=== PATIENT | female | born 1950 | race Caucasian/White ===

== ENCOUNTER → 2016-09-29 | Outpatient (CLI) | payer MEDICARE, OTHER ==
[2015-01-20 13:45] VITALS: BP 130/62
[~2016-09-29] MED LIST: BRIM5DRO3 EACHEYE; CYCL10TA2 PO; DICL100G18 TP; IBUP-1060 PO; IRON18TA PO; TRIA10.8 NS; VIT1CAPS12 PO
--- NOTE | 2016-09-29 15:32 | KCIC ---
MR of the proximal right femur HISTORY: Proximal right thigh pain. Renal cell carcinoma with known metastatic disease to the lungs. Proximal right thigh pain for 6 weeks. TECHNIQUE: Routine multiplanar sequences. COMPARISON: None FINDINGS: Bone lesion identified within the central medullary canal of the proximal right femur. This consists of a rim of fluid signal intensity with central heterogeneous mildly hyperintense T2 signal. Measures 3.4 cm longitudinal and involves most of the medullary diameter. This is in continuity with an intracortical lesion of the medial femur, which measures 22 mm cephalocaudal by 8 mm transverse. These are contiguous, and result in a bilobed mass with acute margins at the endosteal surface. There is a mantle of edema or periosteal reaction along the adjacent medial femoral cortex. No evidence of soft tissue mass. No evidence of acute fracture. No acute muscle pathology. Several small inguinal lymph nodes are seen measuring up to 2.9 cm diameter. IMPRESSION: 1. Bilobed bone tumor of the proximal femur with intramedullary and intracortical component. 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 Consider whole body bone scan to assess activity and document additional lesions. 2. Mild nonspecific enlargement of several right inguinal lymph nodes, could be reactive or metastatic. Electronically signed by: Nelson Schroeder MD (09/29/2016 3:28 PM)
== END | disposition home or self-care (01) ==
LOC: KCIC MRI 14:02
PROVIDERS: ATTEND Family Medicine
DX: D49.2 Neoplasm of unspecified behavior of bone, soft tissue, and skin (principal); G89.3 Neoplasm related pain (acute) (chronic); R59.9 Enlarged lymph nodes, unspecified
CPT/HCPCS: 73718

== ENCOUNTER → 2016-10-05 | Outpatient (CLI) | payer MEDICARE, OTHER ==
[2015-01-20 13:45] VITALS: BP 130/62
[~2016-10-05] MED LIST changes: +CYAN10005 PO; +FURO-68 PO; +HYDR-2758 PO; +PAZO200T PO; +SUCR1TAB35 PO; +TIMO10DR5 OP; +TRAM50TA PO; +VIT1CAPS11 PO
--- NOTE | 2016-10-05 13:33 | RAD ---
Indication known metastatic disease to the right femur. Assess for potential widespread metastatic disease. The history of renal cell carcinoma is noted. Recent MRI examination demonstrating findings compatible with metastatic tumor in the right femoral diaphysis is noted. 26 mCi of technetium labeled MDP was administered. Whole body static images were obtained as well as additional images targeted to the right and left femur. No prior bone scan imaging is available. There is a focus of increased activity in the proximal right femoral diaphysis compatible with the pathology seen on the MRI examination 6 days ago. The finding is compatible with a focus of metastatic disease. There is increased uptake in both feet which is likely degenerative. Photopenic area in the right knee is noted compatible with patient's known prosthesis. Normal activity is seen in the solitary left kidney and urinary bladder. No additional focus suggesting osseous metastatic disease is seen. IMPRESSION: Bone scan redemonstrating known focus of metastatic disease in the proximal right femur. Additional foci of metastatic disease are not suggested on this exam. Increased activity in the feet likely degenerative.
== END | disposition home or self-care (01) ==
LOC: NM 09:21
PROVIDERS: ATTEND Nurse Practitioner Family
DX: C79.51 Secondary malignant neoplasm of bone (principal); C64.1 Malignant neoplasm of right kidney, except renal pelvis; Z90.5 Acquired absence of kidney
CPT/HCPCS: 78306; 96374; A9503

== ENCOUNTER 2017-11-26 15:19 | Inpatient (IN) | payer MEDICARE, OTHER ==
[~2017-11-26] VITALS: Ht 167.6 cm; Wt 97.5 kg
[2017-11-26 17:50] VITALS: BP 157/73
[2017-11-26] MEDS ORDERED: IBUP-1027 PO (18:12)
[2017-11-26] MEDS ORDERED: MULT1TAB52 PO (18:12)
[2017-11-26] MEDS ORDERED: ASPI-612 PO (18:14)
[2017-11-26] MEDS ORDERED: IBUPROFEN 400 MG TABLET. PO PRN (18:15)
[2017-11-26 19:00] VITALS: BP 157/73
[2017-11-26] MEDS: HYDROcodone/APAP 5/325MG 1 TAB TABLET PO PRN (19:35)
[2017-11-26] MEDS: fentaNYL PF VIAL 100 MCG/2 ML VIAL IV PRN (19:37)
[2017-11-26] MEDS ORDERED: ONDANSETRON PF 4 MG/2 ML VIAL. IV PRN (20:00)
[2017-11-26] MEDS: BRIMONIDINE 0.2% OPHTH SOLUTION 5ML BOTTLE. OU SCH (22:01)
[2017-11-26] MEDS: DICLOFENAC SODIUM 1% TOPICAL GEL 100GM TUBE. TP SCH (22:02)
[2017-11-26 23:00] VITALS: BP 134/69
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
[2017-11-27 03:00] VITALS: BP 130/66
[2017-11-27 07:15] VITALS: BP 158/75
[2017-11-27] MEDS: fentaNYL PF VIAL 100 MCG/2 ML VIAL IV PRN ×6 (07:22→21:48)
[2017-11-27] MEDS: HYDROcodone/APAP 5/325MG 1 TAB TABLET PO PRN ×2 (07:22→17:42)
[2017-11-27] MEDS: MULTIVITAMIN with MINERAL TABLET. PO SCH (08:35)
[2017-11-27] MEDS: MULTIVITAMIN I-VITE TABLET. PO SCH (08:35)
[2017-11-27] MEDS: CYCLOBENZAPRINE 10 MG TABLET. PO PRN (08:35)
[2017-11-27] MEDS: CYANOCOBALAMIN (VITAMIN B-12) 1,000 MCG TABLET. PO SCH (08:35)
[2017-11-27] MEDS: TIMOLOL 0.25% OPHTH SOLUTION 5ML BOTTLE. OU SCH (08:36)
[2017-11-27] MEDS: BRIMONIDINE 0.2% OPHTH SOLUTION 5ML BOTTLE. OU SCH ×2 (08:36→21:36)
[2017-11-27] MEDS: DICLOFENAC SODIUM 1% TOPICAL GEL 100GM TUBE. TP SCH ×2 (08:36→21:37)
[2017-11-27] MEDS: VOTRIENT 200 MG PO SCH (08:37)
[2017-11-27] MEDS: traMADol 50 MG TABLET PO PRN (08:47)
--- NOTE | 2017-11-27 09:31 | PDOC2 ---
CONSULT Date of Consult Date of Consult DATE: 11/27/17 TIME: 09:22 Reason for Consult Reason for Consult: Pathologic fracture of right femur Referring Physician Referring Physician: Malachi Identification/Chief Complaint Chief Complaint Right thigh pain Source Source: Chart review, Patient History of Present Illness Reason for Visit: Patient is a very pleasant 67-year-old female with history of renal cell carcinoma treated with nephrectomy, and subsequent metastatic disease treated with lobectomy of her lung. She has had thigh pain for several months. Should it hurts worse whenever she tries to put weight on it, recently she has not been able to ambulate secondary to pain. The pain does radiate posteriorly down her leg a little bit. Past Medical History Cardiovascular: HTN Pulmonary: Other (history of metastatic disease to [facility]) GI: No pertinent hx, GERD Heme/Onc: Other (renal cell carcinoma) Musculoskeletal: Osteoarthritis Renal/: Other (renal cell carcinoma) Past Surgical History Past Surgical History Right total knee arthroplasty, nephrectomy, lobectomy Past Surgical History: Tonsillectomy, Hysterectomy Family History Family History: Heart Disease Social History No ALCOHOL: none Current Medications Current Medications Current Medications Non-Formulary Medication 2 ea DAILY PO Last administered on 11/27/17at 08:37; Start 11/27/17 at 09:00 Fentanyl Citrate (Fentanyl 2ml Vial) 50 mcg PRN Q2HR PRN IV SEVERE PAIN Last administered on 11/27/17at 07:22; Start 11/26/17 at 18:15 Fentanyl Citrate (Fentanyl 2ml Vial) 25 mcg PRN Q2HR PRN IV MODERATE PAIN Last administered on 11/27/17at 08:35; Start 11/26/17 at 18:15 Cyanocobalamin (Vitamin B-12) 1,000 mcg DAILY PO Last administered on at 08:35; Start 11/27/17 at 09:00 Cyclobenzaprine HCl (Flexeril) 10 mg PRN BID PRN PO MUSCLE SPASMS Last administered on 11/27/17at 08:35; Start 11/26/17 at 18:15 Diclofenac Sodium (Voltaren) 1 destiny BID TP ; Start 11/26/17 at 21:00 Acetaminophen/ Hydrocodone Bitart (Lortab 5/325) 1 tab PRN Q6HRS PRN PO MODERATE-SEVERE PAIN Last administered on 11/27/17at 07:22; Start 11/26/17 at 18: 15 Ibuprofen (Motrin) 400 mg PRN Q6HRS PRN PO INFLAMMATION; Start 11/26/17 at 18: 15 Tramadol HCl (Ultram) 50 mg PRN Q6HRS PRN PO MILD PAIN Last administered on at 08:47; Start 11/26/17 at 18:15 Brimonidine Tartrate (Alphagan) 1 drop BID OU Last administered on 11/27/17 08 :36; Start 11/26/17 at 21:00 Multivitamins (Thera M Plus) 1 tab DAILY PO Last administered on 11/27/17 08: 35; Start 11/27/17 at 09:00 Timolol Maleate (Timoptic 0.25% Oph) 1 drop DAILY OU Last administered on at 08:36; Start 11/27/17 at 09:00 Multivitamins/ Minerals (I-Mikael) 1 tab DAILY PO Last administered on 11/27/17at 08:35; Start 11/27/17 at 09:00 Ondansetron HCl (Zofran) 4 mg PRN Q6HRS PRN IV NAUSEA/VOMITING; Start 11/26/17 at 20:00 Active Scripts Active Reported Aspirin Ec (Aspirin) 81 Mg Tablet.dr 1 Tab PO DAILY Multivitamins (Multivitamin) 1 Each Tablet 1 Tab PO DAILY Ibuprofen 400 Mg Tablet 400 Mg PO PRN Q6HRS PRN Timoptic (Timolol Maleate) 10 Ml Drops 10 Ml OP DAILY Ocuvite Softgel (Vit C/Vit E/Lutein/Min/[place]-3) 1 Each Capsule 1 Each PO DAILY Tramadol Hcl 50 Mg Tablet 50 Mg PO Q6H PRN Votrient (Pazopanib Hcl) 200 Mg Tablet 200 Mg PO 1TAB DAILY Hydrocodone-Apap 5-325 (Hydrocodone Bit/Acetaminophen) 1 Each Tablet 1 Tab PO PRN Q6HRS PRN Lasix (Furosemide) 40 Mg Tablet 40 Mg PO DAILY Vitamin B-12 (Cyanocobalamin (Vitamin B-12)) 1,000 Mcg Tablet 1,000 Mcg PO DAILY Alphagan P (Brimonidine Tartrate) 5 Ml Drops 1 Drop EACHEYE BID Voltaren (Diclofenac Sodium) 100 Gm Gel..gram. 1 Gm TP BID Cyclobenzaprine Hcl 10 Mg Tablet 1 Tab PO BID PRN Allergies Allergies: Coded Allergies: oxycodone (Verified Allergy, Intermediate, Nausea, 11/26/17) atorvastatin (Verified Allergy, Mild, Unknown, 11/26/17) Refuses to take irbesartan (Verified Allergy, Unknown, 11/27/17) ROS General: No: Chills, Night Sweats, Fatigue, Malaise, Appetite, Other PSYCHOLOGICAL ROS: No: Anxiety, Behavioral Disorder, Concentration difficultie , Decreased libido, Depression, Disorientation, Hallucinations, Hostility, Irritablity, Memory difficulties, Mood Swings, Obsessive thoughts, Physical abuse, Sexual abuse, Sleep disturbances, Suicidal ideation, Other Eyes: No Blurry vision, No Decreased vision, No Double vision, No Dry eyes, No Excessive tearing, No Eye Pain, No Itchy Eyes, No Loss of vision, No Photophobia , No Scotomata, No Uses contacts, No Uses glasses, No Other HEENT: No: Heacaches, Visual Changes, Hearing change, Nasal congestion, Nasal discharge, Oral lesions, Sinus pain, Sore Throat, Epistaxis, Sneezing, Snoring, Tinnitus, Vertigo, Vocal changes, Other ALLERGY AND IMMUNOLOGY: No: Hives, Insect Bite Sensitivity, Itchy/Watery Eyes, Nasal Congestion, Post Nasal Drip, Seasonal Allergies, Other Hematological and Lymphatic: No: Bleeding Problems, Blood Clots, Blood Transfusions, Brusing, Night Sweats, Pallor, Swollen Lymph Nodes, Other Respiratory: No: Cough, Hemoptysis, Orthopnea, Pleuritic Pain, Shortness of breath, SOB with excertion, Sputum Changes, Stridor, Tachypnea, Wheezing, Other Cardiovascular: No Chest Pain, No Palpitations, No Orthopnea, No Paroxysmal Noc. Dyspnea, No Edema, No Lt Headedness, No Other Gastrointestinal: No Nausea, No Vomiting, No Abdominal Pain, No Diarrhea, No Constipation, No Melena, No Hematochezia, No Other Genitourinary: No Dysuria, No Frequency, No Incontinence, No Hematuria, No Retention, No Discharge, No Urgency, No Pain, No Flank Pain, No Other, No , No , No , No , No , No , No Musculoskeletal: Yes Joint Pain, Yes Muscle Pain Neurological: No Behavorial Changes, No Bowel/Bladder ControlChng, No Confusion , No Dizziness, No Gait Disturbance, No Headaches, No Impaired Coord/balance, No Memory Loss, No Numbness/Tingling, No Seizures, No Speech Problems, No Tremors, No Visual Changes, No Weakness, No Other Physical Exam General: Alert, Oriented X3 HEENT: Atraumatic, EOMI Lungs: Other (respirations aren't labored with symmetric chest rise) Heart: Regular rate, No murmurs Abdomen: Soft, No tenderness Extremities: No edema, Normal pulses Neuro: Normal speech, Strength at 5/5 X4 ext, Sensation intact Psych/Mental Status: Mental status NL, Mood NL MUSCULOSKELETAL: Other (her thigh is tender to palpation. Well-healed midline incision over her right knee. No effusion. She has pain at her thigh with any movement of her leg. No overlying skin changes.) Vitals VITALS Vital Signs Date Time Temp Pulse Resp B/P (MAP) Pulse Ox O2 Delivery O2 Flow Rate FiO2 11/27/17 08:47 96 Room Air 11/27/17 07:22 16 11/27/17 07:15 98.3 62 158/75 (102) 98.3 Images Images Hip, pelvis, femur x-rays were interpreted by myself. She has pathologic fracture through a lytic lesion in her diaphyseal portion of her femur. Assessment/Plan Assessment/Plan Right femur pathologic fracture, history of renal cell carcinoma with metastasis. I did discuss her care with the hospitalist, and recommend treatment by an orthopedic oncologist as I am uncertain as to the most appropriate treatment for this patient. She can be transferred whenever excepting surgeon is available. She should be nonweightbearing in the meantime. MILAGRO MASTERSON II, MD Nov 27, 2017 09:31
[2017-11-27 11:04] VITALS: BP 140/73
--- NOTE | 2017-11-27 11:54 | PDOC3 ---
Discharge Summary Visit Information Date of Admission: Nov 26, 2017 Date of Discharge: Nov 27, 2017 Admitting Diagnosis Comment: Right femur pathologic fracture, history of renal cell carcinoma with metastasis s/p lobectomy lung s/p radiation RT leg Brief Hospital Course Allergies Allergies Coded Allergies Type Severity Reaction Last Updated Verified oxycodone Allergy Intermediate Nausea 11/26/17 Yes atorvastatin Allergy Mild Unknown 11/26/17 Yes irbesartan Allergy Unknown 11/27/17 Yes Vital Signs Vital Signs Date Time Temp Pulse Resp B/P (MAP) Pulse Ox O2 Delivery O2 Flow Rate FiO2 11/27/17 11:04 98.1 58 20 140/73 (95) 95 98.1 11/27/17 08:47 Room Air Brief Hospital Course Ms. Jones is a 67 old female with history of RCC with metastases to the lung that was lobectomized in the past, also history of radiation to the right RCC, comes in because of right leg pain, denies any history of fall. On x-ray shows right fracture diaphyseal shaft. Orthopedics has seen, because of the RCC history with metastases, pathologic fracture, recommended orthopedics oncologist. I did get in touch with transfer service, they will review. Records will be faxed. If accepted, I have readied the paperwork. To stop asa or NSAIDs pending orthopedics eval at for possible surgery. Patient did get pain medicines, otherwise nontoxic, hemodynamically stable. Discussed with RN, and transfer line d c time > 30 Discharge Information Condition at Discharge: Improved, Stable Disposition/Orders: Other (transfer to ) Scheduled Aspirin (Aspirin Ec) 81 Mg Tablet.dr, 1 TAB PO DAILY, #30 Ref 3 (Reported) Entered as Reported by: SANDRA COONEY on 11/26/171813 Last Action: New Order on 11/26/171813 by SANDRA COONEY Brimonidine Tartrate (Alphagan P) 5 Ml Drops, 1 DROP EACHEYE BID, (Reported) Entered as Reported by: MONTEZ MERIDA on 01/20/15 1017 Last Action: Converted on 11/26/171823 by SANDRA COONEY Cyanocobalamin (Vitamin B-12) (Vitamin B-12) 1,000 Mcg Tablet, 1,000 MCG PO DAILY, (Reported) Entered as Reported by: JAKE ROBERTS on 6/28/17 0826 Last Action: Continued on 11/26/171823 by SANDRA COONEY Diclofenac Sodium (Voltaren) 100 Gm Gel..gram., 1 GM TP BID, (Reported) Entered as Reported by: MONTEZ MERIDA on 01/20/15 1017 Last Action: Continued on 11/26/171823 by SANDRA COONEY Furosemide (Lasix) 40 Mg Tablet, 40 MG PO DAILY, (Reported) Entered as Reported by: JAKE ROBERTS on 10/11/16825 Multivitamin (Multivitamins) 1 Each Tablet, 1 TAB PO DAILY, #90 Ref 3 (Reported) Entered as Reported by: SANDRA COONEY on 11/26/171811 Last Action: Converted on 11/26/171823 by SANDRA COONEY Pazopanib Hcl (Votrient) 200 Mg Tablet, 200 MG PO 1tab daily, (Reported) Entered as Reported by: JAKE ROBERTS on 10/11/16825 Timolol Maleate (Timoptic) 10 Ml Drops, 10 ML OP DAILY, (Reported) Entered as Reported by: JAKE ROBERTS on 10/11/16826 Last Action: Converted on 11/26/171823 by SANDRA COONEY Vit C/Vit E/Lutein/Min/[place]-3 (Ocuvite Softgel) 1 Each Capsule, 1 EACH PO DAILY , (Reported) Entered as Reported by: JAKE ROBERTS on 10/11/16825 Last Action: Converted on 11/26/171823 by SANDRA COONEY Scheduled PRN Cyclobenzaprine Hcl (Cyclobenzaprine Hcl) 10 Mg Tablet, 1 TAB PO BID PRN for MUSCLE SPASMS, (Reported) Entered as Reported by: MONTEZ MERIDA on 01/20/151016 Last Action: Continued on 11/26/171823 by SANDRA COONEY Hydrocodone Bit/Acetaminophen (Hydrocodone-Apap 5-325 ) 1 Each Tablet, 1 TAB PO PRN Q6HRS PRN for PAIN, (Reported) Entered as Reported by: JAKE ROBERTS on 10/11/16825 Last Action: Continued on 11/26/171823 by SANDRA COONEY Ibuprofen (Ibuprofen) 400 Mg Tablet, 400 MG PO PRN Q6HRS PRN for INFLAMMATION, ( Reported) Entered as Reported by: SANDRA COONEY on 11/26/171811 Last Action: Continued on 11/26/171823 by SANDRA COONEY Tramadol Hcl (Tramadol Hcl) 50 Mg Tablet, 50 MG PO Q6H PRN for PAIN, (Reported) Entered as Reported by: JAKE ROBERTS on 10/11/16825 Last Action: Continued on 11/26/171823 by SANDRA COONEY Discontinued Medications Sucralfate (Carafate) 1 Gm Tablet, 1 GM PO QIDACHS, (Reported) Entered as Reported by: JAKE ROBERTS on 10/11/16825 Last Action: Discontinued on 11/26/171811 by SANDRA COONEY Triamcinolone Acetonide (Nasacort) 10.8 Ml [place], 2 SPRAY NS DAILY, (Reported) Entered as Reported by: MONTEZ MERIDA on 01/20/15 1017 Last Action: Discontinued on 11/26/171811 by JEFFERY ESPINOSA MD Nov 27, 2017 11:54
[2017-11-27 12:13] LABS: BASO % 0 % (0-3); EOS # 0.1 x10^3/uL (0.0-0.7); EOS % 3 % (0-3); HEMATOCRIT 28.7 % (36.0-47.0); HEMOGLOBIN 9.6 g/dL (12.0-15.5); LYMPH # 0.7 x10^3/uL (1.0-4.8); LYMPH % 25 % (24-48); MEAN CORPUSCULAR HEMOGLOBIN 31 pg (25-35); MEAN CORPUSCULAR HGB CONC 34 g/dL (31-37); MEAN CORPUSCULAR VOLUME 92 fL (79-100); MONO # 0.2 x10^3/uL (0.0-1.1); MONO % 8 % (0-9); NEUT # 1.7 x10^3uL (1.8-7.7); NEUT % 64 % (31-73); PLATELET COUNT 161 x10^3/uL (140-400); RED CELL DISTRIBUTION WIDTH 16.4 % (11.5-14.5); WHITE BLOOD COUNT 2.7 x10^3/uL (4.0-11.0)
[2017-11-27 12:18] LABS: PROTHROMBIN TIME PATIENT 14.1 SEC (11.7-14.0)
[2017-11-27 12:27] LABS: ALBUMIN 2.5 g/dL (3.4-5.0); ALBUMIN/GLOBULIN RATIO 0.7 (1.0-1.7); CALCIUM 8.6 mg/dL (8.5-10.1); CREATININE 0.8 mg/dL (0.6-1.0); GFR 71.1; POTASSIUM 3.8 mmol/L (3.5-5.1); TOTAL BILIRUBIN 0.9 mg/dL (0.2-1.0); TOTAL PROTEIN 6.2 g/dL (6.4-8.2)
[2017-11-27 15:04] VITALS: BP 130/69
--- NOTE | 2017-11-27 15:50 | PDOC ---
PROGRESS NOTES Chief Complaint Chief Complaint RT leg pain History of Present Illness History of Present Illness Right femur pathologic fracture, history of renal cell carcinoma with metastasis s/p lobectomy lung s/p radiation RT leg dw [facility] fusion operator the case, they have to have financial approval NOw word from staff , transfer wont happen till tmr PAin on movment of leg, not controlled by fentanyl, percocet or tramadol Add morphine TRying to avoid NSAds since high likelihood sx in the next few days by [facility] Pt denies trauma prior Hx of radiation to RCC, pathologic diaphyseal fx now Vitals Vitals Vital Signs Date Time Temp Pulse Resp B/P (MAP) Pulse Ox O2 Delivery O2 Flow Rate FiO2 11/27/17 15:25 Room Air 11/27/17 15:04 98.1 61 20 130/69 (89) 95 98.1 Physical Exam General: Alert, Oriented X3 Heart: Regular rate, No murmurs Abdomen: Soft, No tenderness Extremities: No edema, Normal pulses, Other (pain and tenderness RT shaft leg on movement and palp) Labs LABS Laboratory Tests Test 11/27/17 11:44 White Blood Count 2.7 x10^3/uL (4.0-11.0) Red Blood Count 3.10 x10^6/uL (3.50-5.40) Hemoglobin 9.6 g/dL (12.0-15.5) Hematocrit 28.7 % (36.0-47.0) Mean Corpuscular Volume 92 fL (79-100) Mean Corpuscular Hemoglobin 31 pg (25-35) Mean Corpuscular Hemoglobin Concent 34 g/dL (31-37) Red Cell Distribution Width 16.4 % (11.5-14.5) Platelet Count 161 x10^3/uL (140-400) Neutrophils (%) (Auto) 64 % (31-73) Lymphocytes (%) (Auto) 25 % (24-48) Monocytes (%) (Auto) 8 % (0-9) Eosinophils (%) (Auto) 3 % (0-3) Basophils (%) (Auto) 0 % (0-3) Neutrophils # (Auto) 1.7 x10^3uL (1.8-7.7) Lymphocytes # (Auto) 0.7 x10^3/uL (1.0-4.8) Monocytes # (Auto) 0.2 x10^3/uL (0.0-1.1) Eosinophils # (Auto) 0.1 x10^3/uL (0.0-0.7) Basophils # (Auto) 0.0 x10^3/uL (0.0-0.2) Prothrombin Time 14.1 SEC (11.7-14.0) Prothromb Time International Ratio 1.1 (0.8-1.1) Sodium Level 136 mmol/L (136-145) Potassium Level 3.8 mmol/L (3.5-5.1) Chloride Level 100 mmol/L (98-107) Carbon Dioxide Level 31 mmol/L (21-32) Anion Gap 5 (6-14) Blood Urea Nitrogen 6 mg/dL (7-20) Creatinine 0.8 mg/dL (0.6-1.0) Estimated GFR (Cockcroft-Gault) 71.1 BUN/Creatinine Ratio 8 (6-20) Glucose Level 97 mg/dL (70-99) Calcium Level 8.6 mg/dL (8.5-10.1) Total Bilirubin 0.9 mg/dL (0.2-1.0) Aspartate Amino Transf (AST/SGOT) 17 U/L (15-37) Alanine Aminotransferase (ALT/SGPT) 15 U/L (14-59) Alkaline Phosphatase 61 U/L (46-116) Total Protein 6.2 g/dL (6.4-8.2) Albumin 2.5 g/dL (3.4-5.0) Albumin/Globulin Ratio 0.7 (1.0-1.7) Review of Systems Review of Systems RT leg pain, all else is neg Comment Review of Relevant I have reviewed the following items patrick (where applicable) has been applied. Labs Laboratory Tests Test 11/27/17 11:44 White Blood Count 2.7 x10^3/uL (4.0-11.0) Red Blood Count 3.10 x10^6/uL (3.50-5.40) Hemoglobin 9.6 g/dL (12.0-15.5) Hematocrit 28.7 % (36.0-47.0) Mean Corpuscular Volume 92 fL (79-100) Mean Corpuscular Hemoglobin 31 pg (25-35) Mean Corpuscular Hemoglobin Concent 34 g/dL (31-37) Red Cell Distribution Width 16.4 % (11.5-14.5) Platelet Count 161 x10^3/uL (140-400) Neutrophils (%) (Auto) 64 % (31-73) Lymphocytes (%) (Auto) 25 % (24-48) Monocytes (%) (Auto) 8 % (0-9) Eosinophils (%) (Auto) 3 % (0-3) Basophils (%) (Auto) 0 % (0-3) Neutrophils # (Auto) 1.7 x10^3uL (1.8-7.7) Lymphocytes # (Auto) 0.7 x10^3/uL (1.0-4.8) Monocytes # (Auto) 0.2 x10^3/uL (0.0-1.1) Eosinophils # (Auto) 0.1 x10^3/uL (0.0-0.7) Basophils # (Auto) 0.0 x10^3/uL (0.0-0.2) Prothrombin Time 14.1 SEC (11.7-14.0) Prothromb Time International Ratio 1.1 (0.8-1.1) Sodium Level 136 mmol/L (136-145) Potassium Level 3.8 mmol/L (3.5-5.1) Chloride Level 100 mmol/L (98-107) Carbon Dioxide Level 31 mmol/L (21-32) Anion Gap 5 (6-14) Blood Urea Nitrogen 6 mg/dL (7-20) Creatinine 0.8 mg/dL (0.6-1.0) Estimated GFR (Cockcroft-Gault) 71.1 BUN/Creatinine Ratio 8 (6-20) Glucose Level 97 mg/dL (70-99) Calcium Level 8.6 mg/dL (8.5-10.1) Total Bilirubin 0.9 mg/dL (0.2-1.0) Aspartate Amino Transf (AST/SGOT) 17 U/L (15-37) Alanine Aminotransferase (ALT/SGPT) 15 U/L (14-59) Alkaline Phosphatase 61 U/L (46-116) Total Protein 6.2 g/dL (6.4-8.2) Albumin 2.5 g/dL (3.4-5.0) Albumin/Globulin Ratio 0.7 (1.0-1.7) Laboratory Tests Test 11/27/17 11:44 White Blood Count 2.7 x10^3/uL (4.0-11.0) Red Blood Count 3.10 x10^6/uL (3.50-5.40) Hemoglobin 9.6 g/dL (12.0-15.5) Hematocrit 28.7 % (36.0-47.0) Mean Corpuscular Volume 92 fL (79-100) Mean Corpuscular Hemoglobin 31 pg (25-35) Mean Corpuscular Hemoglobin Concent 34 g/dL (31-37) Red Cell Distribution Width 16.4 % (11.5-14.5) Platelet Count 161 x10^3/uL (140-400) Neutrophils (%) (Auto) 64 % (31-73) Lymphocytes (%) (Auto) 25 % (24-48) Monocytes (%) (Auto) 8 % (0-9) Eosinophils (%) (Auto) 3 % (0-3) Basophils (%) (Auto) 0 % (0-3) Neutrophils # (Auto) 1.7 x10^3uL (1.8-7.7) Lymphocytes # (Auto) 0.7 x10^3/uL (1.0-4.8) Monocytes # (Auto) 0.2 x10^3/uL (0.0-1.1) Eosinophils # (Auto) 0.1 x10^3/uL (0.0-0.7) Basophils # (Auto) 0.0 x10^3/uL (0.0-0.2) Prothrombin Time 14.1 SEC (11.7-14.0) Prothromb Time International Ratio 1.1 (0.8-1.1) Sodium Level 136 mmol/L (136-145) Potassium Level 3.8 mmol/L (3.5-5.1) Chloride Level 100 mmol/L (98-107) Carbon Dioxide Level 31 mmol/L (21-32) Anion Gap 5 (6-14) Blood Urea Nitrogen 6 mg/dL (7-20) Creatinine 0.8 mg/dL (0.6-1.0) Estimated GFR (Cockcroft-Gault) 71.1 BUN/Creatinine Ratio 8 (6-20) Glucose Level 97 mg/dL (70-99) Calcium Level 8.6 mg/dL (8.5-10.1) Total Bilirubin 0.9 mg/dL (0.2-1.0) Aspartate Amino Transf (AST/SGOT) 17 U/L (15-37) Alanine Aminotransferase (ALT/SGPT) 15 U/L (14-59) Alkaline Phosphatase 61 U/L (46-116) Total Protein 6.2 g/dL (6.4-8.2) Albumin 2.5 g/dL (3.4-5.0) Albumin/Globulin Ratio 0.7 (1.0-1.7) Medications Current Medications Non-Formulary Medication 2 ea DAILY PO Last administered on 11/27/17 08:37; Start 11/27/17 at 09:00 Fentanyl Citrate (Fentanyl 2ml Vial) 50 mcg PRN Q2HR PRN IV SEVERE PAIN Last administered on 11/27/17 15:25; Start 11/26/17 at 18:15 Fentanyl Citrate (Fentanyl 2ml Vial) 25 mcg PRN Q2HR PRN IV MODERATE PAIN Last administered on 11/27/17 08:35; Start 11/26/17 at 18:15 Cyanocobalamin (Vitamin B-12) 1,000 mcg DAILY PO Last administered on 08:35; Start 11/27/17 at 09:00 Cyclobenzaprine HCl (Flexeril) 10 mg PRN BID PRN PO MUSCLE SPASMS Last administered on 11/27/17 08:35; Start 11/26/17 at 18:15 Diclofenac Sodium (Voltaren) 1 destiny BID TP ; Start 11/26/17 at 21:00 Acetaminophen/ Hydrocodone Bitart (Lortab 5/325) 1 tab PRN Q6HRS PRN PO MODERATE-SEVERE PAIN Last administered on 11/27/17at 07:22; Start 11/26/17 at 18: 15 Ibuprofen (Motrin) 400 mg PRN Q6HRS PRN PO INFLAMMATION; Start 11/26/17 at 18: 15; Stop 11/27/17 at 15:46; Status DC Tramadol HCl (Ultram) 50 mg PRN Q6HRS PRN PO MILD PAIN Last administered on at 08:47; Start 11/26/17 at 18:15 Brimonidine Tartrate (Alphagan) 1 drop BID OU Last administered on 11/27/17at 08 :36; Start 11/26/17 at 21:00 Multivitamins (Thera M Plus) 1 tab DAILY PO Last administered on 11/27/17at 08: 35; Start 11/27/17 at 09:00 Timolol Maleate (Timoptic 0.25% Ophth) 1 drop DAILY OU Last administered on at 08:36; Start 11/27/17 at 09:00 Multivitamins/ Minerals (I-Mikael) 1 tab DAILY PO Last administered on 11/27/17at 08:35; Start 11/27/17 at 09:00 Ondansetron HCl (Zofran) 4 mg PRN Q6HRS PRN IV NAUSEA/VOMITING; Start 11/26/17 at 20:00 Active Scripts Active Reported Aspirin Ec (Aspirin) 81 Mg Tablet.dr 1 Tab PO DAILY Multivitamins (Multivitamin) 1 Each Tablet 1 Tab PO DAILY Ibuprofen 400 Mg Tablet 400 Mg PO PRN Q6HRS PRN Timoptic (Timolol Maleate) 10 Ml Drops 10 Ml OP DAILY Ocuvite Softgel (Vit C/Vit E/Lutein/Min/[place]-3) 1 Each Capsule 1 Each PO DAILY Tramadol Hcl 50 Mg Tablet 50 Mg PO Q6H PRN Votrient (Pazopanib Hcl) 200 Mg Tablet 200 Mg PO 1TAB DAILY Hydrocodone-Apap 5-325 (Hydrocodone Bit/Acetaminophen) 1 Each Tablet 1 Tab PO PRN Q6HRS PRN Lasix (Furosemide) 40 Mg Tablet 40 Mg PO DAILY Vitamin B-12 (Cyanocobalamin (Vitamin B-12)) 1,000 Mcg Tablet 1,000 Mcg PO DAILY Alphagan P (Brimonidine Tartrate) 5 Ml Drops 1 Drop EACHEYE BID Voltaren (Diclofenac Sodium) 100 Gm Gel..gram. 1 Gm TP BID Cyclobenzaprine Hcl 10 Mg Tablet 1 Tab PO BID PRN Vitals/I & O Vital Sign - Last 24 Hours 11/26/17 11/26/17 11/26/17 11/26/17 17:50 19:00 19:35 19:37 Temp 97.4 97.4 97.4 97.4 Pulse 69 69 Resp 18 18 18 B/P (MAP) 157/73 (101) 157/73 (101) Pulse Ox 98 98 O2 Delivery Room Air Room Air 11/26/17 11/26/17 11/26/17 11/26/17 20:00 20:07 20:35 23:00 Temp 98.1 98.1 Pulse 63 Resp 18 18 B/P (MAP) 134/69 (90) Pulse Ox 96 O2 Delivery Room Air 11/27/17 11/27/17 11/27/17 11/27/17 03:00 07:15 07:22 07:22 Temp 98.6 98.3 98.6 98.3 Pulse 80 62 Resp 18 18 16 16 B/P (MAP) 130/66 (87) 158/75 (102) Pulse Ox 96 97 96 96 O2 Delivery Room Air Room Air 11/27/17 11/27/17 11/27/17 11/27/17 08:10 08:35 08:47 11:04 Temp 98.1 98.1 Pulse 58 Resp 20 B/P (MAP) 140/73 (95) Pulse Ox 96 95 O2 Delivery Room Air Room Air Room Air 11/27/17 11/27/17 11/27/17 11/27/17 13:08 13:08 13:08 13:08 O2 Delivery Room Air Room Air Room Air Room Air 11/27/17 11/27/17 11/27/17 13:26 15:04 15:25 Temp 98.1 98.1 Pulse 61 Resp 20 B/P (MAP) 130/69 (89) Pulse Ox 95 O2 Delivery Room Air Room Air Intake and Output 11/26/17 11/26/17 11/27/17 15:00 23:00 07:00 Intake Total 120 ml 0 ml Balance 120 ml 0 ml JEFFERY HARMON MD Nov 27, 2017 15:50
[2017-11-27] MEDS ORDERED: MORPHINE SULFATE 2 MG/ML VIAL. IV PRN (16:00)
--- NOTE | 2017-11-27 17:19 | RAD ---
EXAM: CHEST 1 VIEW History: Preop COMPARISON: 08/10/2016 TECHNIQUE: Single portable radiograph of the chest FINDINGS: The cardiac silhouette is unremarkable. Linear subtle density identified in the right lung base probably epicardial fat pad or atelectasis. Impression: Linear subtle density identified in the right lung base could be epicardial fat pad or atelectasis. Electronically signed by: Tristan Villeda MD (11/27/2017 5:15 PM) [id number]
--- NOTE | 2017-11-27 17:24 | RAD ---
Examination: 2 views of the right hip, 2 views of the right femur COMPARISON: None available history: History of fall, pain FINDINGS: Osseous demineralization limits evaluation. Right femoral head is within the acetabulum. Moderate degenerative changes identified in the right hip joint There is moth-eaten appearance with scalloping of the medial cortex of the proximal diaphysis of the femur with a lytic lesion identified in the lateral proximal diaphysis of the femur with endosteal scalloping likely lytic metastatic lesions. Partially visualized right knee arthroplasty changes. IMPRESSION: Metastatic lesions with cortical disruption and thinning of the cortex identified in the proximal right femoral diaphysis. Electronically signed by: Tristan Villeda MD (11/27/2017 5:20 PM) [id number]
[2017-11-27 19:00] VITALS: BP 144/65
[2017-11-27 23:00] VITALS: BP 137/67
[2017-11-28] MEDS: fentaNYL PF VIAL 100 MCG/2 ML VIAL IV PRN ×5 (02:22→09:20)
[2017-11-28 03:00] VITALS: BP 149/74
[2017-11-28] MEDS: HYDROcodone/APAP 5/325MG 1 TAB TABLET PO PRN ×2 (05:05→08:32)
--- NOTE | 2017-11-28 05:27 | CONS ---
DATE OF CONSULTATION: 11/27/2017 MEDICAL ONCOLOGY CONSULTATION REQUESTING PHYSICIAN: Dr. Lacy Ly. REASON FOR CONSULTATION: Metastatic renal cell carcinoma with right femur pathologic fracture. HISTORY OF PRESENT ILLNESS: The patient is a 67-year-old female who presented with severe anemia, weight loss and thrombocytosis in January 2015 and was found to have a large right renal mass. She underwent right nephrectomy by Dr. 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 In May 2016, a surveillance CT scan revealed a new 1.1 cm right upper lobe lung nodule and a 0.7 cm left lower lobe lung nodule. Biopsy confirmed metastatic renal cell carcinoma. She underwent right upper lobe wedge resection on 08/03/2016. In August 2016, she was started on pazopanib. In September 2016, right hip MRI revealed metastatic disease to the bone; however, the bone scan was negative at that time. She received palliative radiation therapy to her right femur in October 2016. She was admitted to [facility] on 11/26/2017 with complaints of progressively worsening right thigh pain. It has got to the extent that she is not able to ambulate. She underwent x-rays that revealed pathologic fracture of the right femur. Orthopedics was consulted. I discussed with Dr. Rusty Esposito from Orthopedics who recommended transfer to [facility] for evaluation by orthopedic oncologist. PAST MEDICAL HISTORY: Osteoarthritis, fibromyalgia, cataracts, acid reflux, back pain. PAST SURGICAL HISTORY: Tubal ligation, hysterectomy, ankle surgery, cardiac catheterization, knee replacement, nephrectomy, right upper lobe lung wedge resection, appendectomy, tonsillectomy, cataract surgery. FAMILY HISTORY: Positive for diabetes and cancer in the bones and history of heart disease. SOCIAL HISTORY: Never smoker. No alcohol abuse. REVIEW OF SYSTEMS: A 12-point review of system was performed. Pertinent positives are mentioned in the history of present illness. Rest of the system review is negative. PHYSICAL EXAMINATION: GENERAL APPEARANCE: The patient is a 67-year-old female who is in no acute cardiorespiratory distress. VITAL SIGNS: Blood pressure 140/73, temperature 98.1. HEENT: Head atraumatic, normocephalic. Eyes: No icterus. NECK: Supple. CHEST: Bilaterally symmetrical. No crepitations or rhonchi heard. HEART: S1, S2 normal. ABDOMEN: Soft, nontender. CENTRAL NERVOUS SYSTEM: No focal deficits. LYMPHATICS: No lymphadenopathy. SKIN: No rashes. MUSCULOSKELETAL: She has significant pain in the right thigh region and she is unable to ambulate. LYMPHATICS: No lymphadenopathy. LABORATORY DATA: WBC 2.7, hemoglobin 9.6, platelet count 161, absolute neutrophil count is 1.7. Creatinine is 0.8. IMPRESSION AND PLAN: 1. Stage IV renal cell carcinoma/clear cell carcinoma with metastatic disease to the lungs and bones. She has evidence of metastatic disease to the right femur. Otherwise, the bone scan was negative. She has undergone right nephrectomy in 2014, right upper lobe lung wedge resection in July 2016. She has been on palliative treatment with pazopanib since August 2016 at a dose of 600 mg daily. Bilirubin was elevated and hence, the dose was decreased to 400 mg daily. Currently, her total bilirubin is normal at 0.9. I would hold the pazopanib for now until the right femur lesion is addressed by Orthopedics Oncology. 2. Pathologic fracture of the right femur. I discussed with Dr. Rusty Esposito from Orthopedics and I also discussed with Dr. Lacy Ly. Dr. Esposito recommended transfer to [facility] for management by orthopedic oncologist. 3. Anemia due to malignancy. Hemoglobin 9.6, monitor. 4. Leukopenia, mild at 2.7 with a neutrophil count of 1.7. No signs of infection. Etiology likely due to pazopanib. Continue to monitor. DONNIE RODRIGUEZ MD DR: RICKY/sebastian JOB#: [id number] / [id number] MTDD
[2017-11-28 07:00] VITALS: BP 178/90
[2017-11-28] MEDS: VOTRIENT 200 MG PO SCH (08:16)
[2017-11-28] MEDS: TIMOLOL 0.25% OPHTH SOLUTION 5ML BOTTLE. OU SCH (08:16)
[2017-11-28] MEDS: BRIMONIDINE 0.2% OPHTH SOLUTION 5ML BOTTLE. OU SCH (08:16)
[2017-11-28] MEDS: MULTIVITAMIN I-VITE TABLET. PO SCH (08:32)
[2017-11-28] MEDS: CYANOCOBALAMIN (VITAMIN B-12) 1,000 MCG TABLET. PO SCH (08:32)
[2017-11-28] MEDS: traMADol 50 MG TABLET PO PRN (08:32)
[2017-11-28] MEDS: CYCLOBENZAPRINE 10 MG TABLET. PO PRN (08:32)
[2017-11-28] MEDS: MULTIVITAMIN with MINERAL TABLET. PO SCH (08:32)
--- NOTE | 2017-11-28 08:53 | PDOC3 ---
Discharge Summary Visit Information Date of Admission: Nov 26, 2017 Date of Discharge: Nov 28, 2017 Admitting Diagnosis Comment: Right femur pathologic fracture, history of renal cell carcinoma with metastasis s/p lobectomy lung s/p radiation RT leg Brief Hospital Course Allergies Allergies Coded Allergies Type Severity Reaction Last Updated Verified oxycodone Allergy Intermediate Nausea 11/26/17 Yes atorvastatin Allergy Mild Unknown 11/26/17 Yes irbesartan Allergy Unknown 11/27/17 Yes Vital Signs Vital Signs Date Time Temp Pulse Resp B/P (MAP) Pulse Ox O2 Delivery O2 Flow Rate FiO2 11/28/17 08:32 Room Air 11/28/17 08:09 96 11/28/17 07:00 98.3 77 18 178/90 (119) 98.3 Lab Results Laboratory Tests Test 11/27/17 11:44 White Blood Count 2.7 x10^3/uL (4.0-11.0) Red Blood Count 3.10 x10^6/uL (3.50-5.40) Hemoglobin 9.6 g/dL (12.0-15.5) Hematocrit 28.7 % (36.0-47.0) Mean Corpuscular Volume 92 fL (79-100) Mean Corpuscular Hemoglobin 31 pg (25-35) Mean Corpuscular Hemoglobin Concent 34 g/dL (31-37) Red Cell Distribution Width 16.4 % (11.5-14.5) Platelet Count 161 x10^3/uL (140-400) Neutrophils (%) (Auto) 64 % (31-73) Lymphocytes (%) (Auto) 25 % (24-48) Monocytes (%) (Auto) 8 % (0-9) Eosinophils (%) (Auto) 3 % (0-3) Basophils (%) (Auto) 0 % (0-3) Neutrophils # (Auto) 1.7 x10^3uL (1.8-7.7) Lymphocytes # (Auto) 0.7 x10^3/uL (1.0-4.8) Monocytes # (Auto) 0.2 x10^3/uL (0.0-1.1) Eosinophils # (Auto) 0.1 x10^3/uL (0.0-0.7) Basophils # (Auto) 0.0 x10^3/uL (0.0-0.2) Prothrombin Time 14.1 SEC (11.7-14.0) Prothromb Time International Ratio 1.1 (0.8-1.1) Sodium Level 136 mmol/L (136-145) Potassium Level 3.8 mmol/L (3.5-5.1) Chloride Level 100 mmol/L (98-107) Carbon Dioxide Level 31 mmol/L (21-32) Anion Gap 5 (6-14) Blood Urea Nitrogen 6 mg/dL (7-20) Creatinine 0.8 mg/dL (0.6-1.0) Estimated GFR (Cockcroft-Gault) 71.1 BUN/Creatinine Ratio 8 (6-20) Glucose Level 97 mg/dL (70-99) Calcium Level 8.6 mg/dL (8.5-10.1) Total Bilirubin 0.9 mg/dL (0.2-1.0) Aspartate Amino Transf (AST/SGOT) 17 U/L (15-37) Alanine Aminotransferase (ALT/SGPT) 15 U/L (14-59) Alkaline Phosphatase 61 U/L (46-116) Total Protein 6.2 g/dL (6.4-8.2) Albumin 2.5 g/dL (3.4-5.0) Albumin/Globulin Ratio 0.7 (1.0-1.7) Laboratory Tests Test 11/27/17 11:44 White Blood Count 2.7 x10^3/uL (4.0-11.0) Red Blood Count 3.10 x10^6/uL (3.50-5.40) Hemoglobin 9.6 g/dL (12.0-15.5) Hematocrit 28.7 % (36.0-47.0) Mean Corpuscular Volume 92 fL (79-100) Mean Corpuscular Hemoglobin 31 pg (25-35) Mean Corpuscular Hemoglobin Concent 34 g/dL (31-37) Red Cell Distribution Width 16.4 % (11.5-14.5) Platelet Count 161 x10^3/uL (140-400) Neutrophils (%) (Auto) 64 % (31-73) Lymphocytes (%) (Auto) 25 % (24-48) Monocytes (%) (Auto) 8 % (0-9) Eosinophils (%) (Auto) 3 % (0-3) Basophils (%) (Auto) 0 % (0-3) Neutrophils # (Auto) 1.7 x10^3uL (1.8-7.7) Lymphocytes # (Auto) 0.7 x10^3/uL (1.0-4.8) Monocytes # (Auto) 0.2 x10^3/uL (0.0-1.1) Eosinophils # (Auto) 0.1 x10^3/uL (0.0-0.7) Basophils # (Auto) 0.0 x10^3/uL (0.0-0.2) Prothrombin Time 14.1 SEC (11.7-14.0) Prothromb Time International Ratio 1.1 (0.8-1.1) Sodium Level 136 mmol/L (136-145) Potassium Level 3.8 mmol/L (3.5-5.1) Chloride Level 100 mmol/L (98-107) Carbon Dioxide Level 31 mmol/L (21-32) Anion Gap 5 (6-14) Blood Urea Nitrogen 6 mg/dL (7-20) Creatinine 0.8 mg/dL (0.6-1.0) Estimated GFR (Cockcroft-Gault) 71.1 BUN/Creatinine Ratio 8 (6-20) Glucose Level 97 mg/dL (70-99) Calcium Level 8.6 mg/dL (8.5-10.1) Total Bilirubin 0.9 mg/dL (0.2-1.0) Aspartate Amino Transf (AST/SGOT) 17 U/L (15-37) Alanine Aminotransferase (ALT/SGPT) 15 U/L (14-59) Alkaline Phosphatase 61 U/L (46-116) Total Protein 6.2 g/dL (6.4-8.2) Albumin 2.5 g/dL (3.4-5.0) Albumin/Globulin Ratio 0.7 (1.0-1.7) Brief Hospital Course Ms. Jones is a 67 old [white female with history of RCC to the right, status post radiation to the right kidney, did not fall at home but could not get up after waking up. Right leg pain. Severe. ER showed right diaphyseal shaft fracture. Orthopedics here recommended ortho onc bec of the nature of the fx, . Needs a luca in the dipahyseal shaft. Recommended transfer to and has been accepted today Med list done, discussed with [facility] skin[facility] Discharge Information Condition at Discharge: Stable Disposition/Orders: Other (transfer to ) Scheduled Aspirin (Aspirin Ec) 81 Mg Tablet.dr, 1 TAB PO DAILY, #30 Ref 3 (Reported) Entered as Reported by: SANDRA COONEY on 11/26/171813 Last Action: New Order on 11/26/171813 by SANDRA COONEY Brimonidine Tartrate (Alphagan P) 5 Ml Drops, 1 DROP EACHEYE BID, (Reported) Entered as Reported by: MONTEZ MERIDA on 01/20/15 1017 Last Action: Converted on 11/26/171823 by SANDRA COONEY Cyanocobalamin (Vitamin B-12) (Vitamin B-12) 1,000 Mcg Tablet, 1,000 MCG PO DAILY, (Reported) Entered as Reported by: JAKE ROBERTS on 10/11/16825 Last Action: Continued on 11/26/171823 by SANDRA COONEY Diclofenac Sodium (Voltaren) 100 Gm Gel..gram., 1 GM TP BID, (Reported) Entered as Reported by: MONTEZ MERIDA on 01/20/15 1017 Last Action: Continued on 11/26/171823 by SANDRA COONEY Furosemide (Lasix) 40 Mg Tablet, 40 MG PO DAILY, (Reported) Entered as Reported by: JAKE ROBERTS on 10/11/16825 Multivitamin (Multivitamins) 1 Each Tablet, 1 TAB PO DAILY, #90 Ref 3 (Reported) Entered as Reported by: SANDRA COONEY on 11/26/171811 Last Action: Converted on 11/26/171823 by SANDRA COONEY Pazopanib Hcl (Votrient) 200 Mg Tablet, 200 MG PO 1tab daily, (Reported) Entered as Reported by: JAKE ROBERTS on 10/11/16825 Timolol Maleate (Timoptic) 10 Ml Drops, 10 ML OP DAILY, (Reported) Entered as Reported by: JAKE ROBERTS on 10/11/16826 Last Action: Converted on 11/26/171823 by SANDRA COONEY Vit C/Vit E/Lutein/Min/[place]-3 (Ocuvite Softgel) 1 Each Capsule, 1 EACH PO DAILY , (Reported) Entered as Reported by: JAKE ROBERTS on 10/11/16825 Last Action: Converted on 11/26/171823 by SANDRA COONEY Scheduled PRN Cyclobenzaprine Hcl (Cyclobenzaprine Hcl) 10 Mg Tablet, 1 TAB PO BID PRN for MUSCLE SPASMS, (Reported) Entered as Reported by: MONTEZ MERIDA on 01/20/15 1017 Last Action: Continued on 11/26/171823 by SANDRA COONEY Hydrocodone Bit/Acetaminophen (Hydrocodone-Apap 5-325 ) 1 Each Tablet, 1 TAB PO PRN Q6HRS PRN for PAIN, (Reported) Entered as Reported by: JAKE ROBERTS on 10/11/16825 Last Action: Continued on 11/26/171823 by SANDRA COONEY Ibuprofen (Ibuprofen) 400 Mg Tablet, 400 MG PO PRN Q6HRS PRN for INFLAMMATION, ( Reported) Entered as Reported by: SANDRA COONEY on 11/26/171811 Last Action: Continued on 11/26/171823 by SANDRA COONEY Tramadol Hcl (Tramadol Hcl) 50 Mg Tablet, 50 MG PO Q6H PRN for PAIN, (Reported) Entered as Reported by: JAKE ROBERTS on 10/11/16825 Last Action: Continued on 11/26/171823 by SANDRA COONEY Discontinued Medications Sucralfate (Carafate) 1 Gm Tablet, 1 GM PO QIDACHS, (Reported) Entered as Reported by: JAKE ROBERTS on 10/11/16825 Last Action: Discontinued on 11/26/171811 by SANDRA COONEY Triamcinolone Acetonide (Nasacort) 10.8 Ml [place], 2 SPRAY NS DAILY, (Reported) Entered as Reported by: MONTEZ MERIDA on 01/20/15 1017 Last Action: Discontinued on 11/26/171811 by JEFFERY ESPINOSA MD Nov 28, 2017 08:53
[2017-11-28] MEDS: DICLOFENAC SODIUM 1% TOPICAL GEL 100GM TUBE. TP SCH (09:00)
[2017-11-28] MEDS ORDERED: fentaNYL PF VIAL 100 MCG/2 ML VIAL IM ONE (10:00)
[2017-11-28] MEDS ORDERED: fentaNYL PF VIAL 100 MCG/2 ML VIAL IV ONE (10:30)
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
== END 2017-11-28 09:50 | disposition short-term general hospital (02) | DRG 542 ==
LOC: 4 NORTH 17:50
PROVIDERS: ADMIT Internal Medicine; ATTEND Internal Medicine
DX: M84.451A Pathological fracture, right femur, initial encounter for fracture (principal); E43 Unspecified severe protein-calorie malnutrition; C79.51 Secondary malignant neoplasm of bone; C78.00 Secondary malignant neoplasm of unspecified lung; C64.1 Malignant neoplasm of right kidney, except renal pelvis; G89.29 Other chronic pain; M79.7 Fibromyalgia; I10 Essential (primary) hypertension; M19.90 Unspecified osteoarthritis, unspecified site; Z96.651 Presence of right artificial knee joint; Z51.5 Encounter for palliative care; D63.0 Anemia in neoplastic disease; D72.819 Decreased white blood cell count, unspecified; Z90.2 Acquired absence of lung [part of]; Z90.5 Acquired absence of kidney; Z88.5 Allergy status to narcotic agent; Z82.49 Family history of ischemic heart disease and other diseases of the circulatory system; Z92.3 Personal history of irradiation; Z90.710 Acquired absence of both cervix and uterus; Z98.51 Tubal ligation status; Z83.3 Family history of diabetes mellitus; Z80.8 Family history of malignant neoplasm of other organs or systems; Z79.82 Long term (current) use of aspirin; Z68.34 Body mass index [BMI] 34.0-34.9, adult
CPT/HCPCS: 36415; 71045; 73502; 73552; 80053; 85025; 85610; J2270; J3010

== ENCOUNTER → 2018-01-17 | Outpatient (CLI) | payer MEDICARE, OTHER ==
[~2018-01-17] MED LIST changes: +APIX5TAB PO; +ASPI-612 PO; +IBUP-1027 PO; +MULT1TAB52 PO
--- NOTE | 2018-01-17 17:24 | RAD ---
Radionuclide bone scan, 01/17/2018: HISTORY: Renal cell cancer, lung cancer, previous leg metastasis Whole-body imaging was performed following IV injection of 25 mCi of technetium 99m MDP. Comparison is made to a study from 10/05/2016. The following findings are delineated: 1. By history there has been a luca inserted in the proximal right femur traversing a known proximal femoral metastasis. There is mild persistent increased activity in the proximal femoral shaft, similar to that seen on 10/05/2016. 2. Decreased activity related to a right total knee prosthesis is again noted. There are foci of increased activity in the distal femur superior to the level the knee prosthesis which are new. This could be due to postsurgical change with screws related to the distal aspect of the presumed intramedullary luca. Correlation with current femoral radiographs is suggested. 3. There is moderately increased activity at the right ankle, also evident on the previous study, likely on a arthritic or posttraumatic basis. 4. Activity of the radionuclide about the skeleton and major joints is otherwise symmetric. There is no specific evidence of additional osseous metastatic disease. Electronically signed by: Herber rTevino MD (01/17/2018 5:20 PM) [facility]
== END | disposition home or self-care (01) ==
LOC: NM 12:12
PROVIDERS: ATTEND Internal Medicine Hematology & Oncology
DX: C64.1 Malignant neoplasm of right kidney, except renal pelvis (principal); C78.01 Secondary malignant neoplasm of right lung; R53.83 Other fatigue
CPT/HCPCS: 78306; 96374; A9503

== ENCOUNTER 2018-01-18 08:38 | Outpatient (CLI) | payer MEDICARE, OTHER ==
[2018-01-18] VITALS (7 sets, daily range): BP systolic 130–148; BP diastolic 67–78
[~2018-01-18] VITALS: Ht 167.6 cm; Wt 95.7 kg
[~2018-01-18 08:38] MED LIST changes: -APIX5TAB PO
[2018-01-18] MEDS ORDERED: LIDOCAINE 1%/EPI 1:100,000 20 ML VIAL. ONE (09:24)
[2018-01-18 09:35] LABS: BASO % 1 % (0-3); EOS # 0.2 x10^3/uL (0.0-0.7); EOS % 5 % (0-3); HEMATOCRIT 27.3 % (36.0-47.0); HEMOGLOBIN 9.1 g/dL (12.0-15.5); LYMPH # 0.8 x10^3/uL (1.0-4.8); LYMPH % 19 % (24-48); MEAN CORPUSCULAR HEMOGLOBIN 30 pg (25-35); MEAN CORPUSCULAR HGB CONC 34 g/dL (31-37); MEAN CORPUSCULAR VOLUME 90 fL (79-100); MONO # 0.4 x10^3/uL (0.0-1.1); MONO % 9 % (0-9); NEUT # 2.9 x10^3uL (1.8-7.7); NEUT % 66 % (31-73); PLATELET COUNT 270 x10^3/uL (140-400); RED BLOOD COUNT 3.03 x10^6/uL (3.50-5.40); RED CELL DISTRIBUTION WIDTH 18.3 % (11.5-14.5); WHITE BLOOD COUNT 4.4 x10^3/uL (4.0-11.0)
[2018-01-18] MEDS ORDERED: APIX5TAB PO (09:35)
[2018-01-18 09:42] LABS: PROTHROMBIN TIME PATIENT 13.9 SEC (11.7-14.0)
[2018-01-18] MEDS ORDERED: fentaNYL PF VIAL 100 MCG/2 ML VIAL ONE (10:46)
[2018-01-18] MEDS ORDERED: MIDAZOLAM HCL/PF 2 MG/2 ML VIAL. ONE (10:46)
[2018-01-18] MEDS ORDERED: LIDOCAINE 1%/EPI 1:100,000 20 ML VIAL. IJ ONE (11:15)
[2018-01-18] MEDS ORDERED: MIDAZOLAM HCL/PF 2 MG/2 ML VIAL. IV ONE (11:15)
[2018-01-18] MEDS ORDERED: fentaNYL PF VIAL 100 MCG/2 ML VIAL IV ONE (11:15)
[2018-01-18] MEDS ORDERED: KETOROLAC 15 MG/ML VIAL. IV ONE (12:15)
--- NOTE | 2018-01-18 14:27 | RAD ---
Procedure: Ultrasound and fluoroscopically guided placement of right internal jugular power port.. 01/18/2018 2:23 PM Clinical Indication: Renal cancer. Need for central venous access for chemotherapy Sedation: Conscious sedation was administered for 30 minutes. The patient was monitored by a qualified independent observer throughout the time of sedation. Please refer to the medical record for exact doses of medications utilized to achieve moderate sedation. Fluoroscopy time: 0.5 MIN Dose area product: 1 Gycm2 Consent: The procedure was explained in its entirety to the patient or the patients designated digital media representative by a member of the treatment team, including a discussion of the risks, benefits and commonly accepted alternatives to the procedure, as well as the expected consequences of no therapy whatsoever. Discussion of the risks included, but was not limited to, those that are most frequent and those that are rare but possibly severe or life-threatening, as well as the possibility of unforeseen complications. Technique and Findings: All elements of maximal sterile barrier technique including the use of a cap, mask, sterile gown, sterile gloves, large sterile sheet, appropriate hand hygiene, and 2% chlorhexidine for cutaneous antisepsis (or acceptable alternative antiseptic per current guidelines) were followed for this procedure. Following informed consent, and a timeout procedure, the patient was prepped and draped in the usual sterile fashion. Ultrasound interrogation of the right neck revealed patency and compressibility of the right internal jugular vein. A 21-gauge micropuncture was then used to gain access to this vein under ultrasound guidance. A hard copy ultrasound image was recorded. The needle was exchanged over a wire for a sheath. A 1 inch incision was made several centimeters inferior to the venotomy site. A catheter was tunneled from this site dermatotomy site in the neck. Catheter was advanced through peel-away sheath such that its tip was in the proximal right atrium with the patient supine. The catheter was trimmed to length and connected to the port reservoir. The port was found to flush and aspirate normally. The wound was closed in layers using 4-0 Vicryl suture. Sterile dressings were applied. Impression: Successful ultrasound and fluoroscopically guided placement of a right internal jugular PowerPort
== END 2018-01-18 13:00 | disposition home or self-care (01) ==
LOC: INTRAD 08:38
PROVIDERS: ATTEND Internal Medicine Hematology & Oncology
DX: C64.1 Malignant neoplasm of right kidney, except renal pelvis (principal); Z88.6 Allergy status to analgesic agent; Z88.8 Allergy status to other drugs, medicaments and biological substances
CPT/HCPCS: 36415; 36561; 76937; 77001; 85025; 85610; 99152; 99153; C1788; C1892; J0690; J2250; J3010; J3490; C1751